=== PATIENT | male | born 1940 | race Caucasian/White ===

== ENCOUNTER 2016-03-27 16:20 | Emergency (ER) | payer MEDICARE ==
[2016-03-27 18:11] LABS: Basophils % (Auto) 0.5 % (0.0-1.8); Eosinophils % (Auto) 1.8 % (0.0-4.3); Hematocrit 39.1 % (35.5-45.6); Hemoglobin 13.1 gm/dl (11.8-15.2); Mean Corpuscular HGB Conc 34 % (32-34); Mean Corpuscular Hemoglobin 33 pg (28-32); Mean Corpuscular Volume 100 fl (84-94); Platelet Count 265 K/mm3 (140-440); Red Blood Count 3.93 M/mm3 (3.65-5.03); Red Cell Distribution Width 13.9 % (13.2-15.2); White Blood Count 11.3 K/mm3 (4.5-11.0)
--- NOTE | 2016-03-27 18:16 | Cat Scan Report ---
FINAL REPORT PROCEDURE: CT HEAD/BRAIN WO CON TECHNIQUE: Computerized tomography of the head was performed without contrast material. HISTORY: r parietal trauma fall COMPARISON: Head CT dated June 15, 2014 FINDINGS: Minimal mucosal thickening is seen in the paranasal sinuses. Mastoid air cells are clear. No calvarial fracture is seen. 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 Prominent chronic small vessel ischemic changes are suspect in the periventricular white matter, increased from prior study. No acute intracranial hemorrhage or mass effect is seen. An acute CVA is not seen. IMPRESSION: Old ischemic changes are seen without evidence of acute abnormality.
[2016-03-27 18:30] LABS: Calcium 9.3 mg/dL (8.4-10.2)
[2016-03-27 18:31] LABS: Potassium 4.4 mmol/L (3.6-5.0)
--- NOTE | 2016-03-27 19:09 | Emergency Department Report ---
ED General Adult HPI - General Chief complaint: Fall Stated complaint: FALL Time Seen by Provider: 03/27/16 17:29 Source: patient, family, EMS Mode of arrival: Stretcher Limitations: Physical Limitation - History of Present Illness Initial comments: Patient fell out of his wheelchair upon attempted transfer. He has a left hemiparesis and this does happen not infrequently. He's been seen here for a laceration related to a similar mechanism. He was sent from the long-term for evaluation after fall. He states that he feels fine. There was no reported loss of consciousness. He denies neck pain. He is able to respond to questions despite his previous stroke. He denies any other injury. He states he feels fine now. He is up-to-date on his tetanus vaccine according to his . -: Gradual Location: head Radiation: non-radiation Severity scale (0 -10): 0 Consistency: now resolved Improves with: none Worsens with: none Associated Symptoms: denies other symptoms Treatments Prior to Arrival: none - Related Data Home Medications Medication Instructions Recorded Confirmed Last Taken Simvastatin 20 mg PO DAILY 06/15/14 06/15/14 Unknown Previous Rx's Medication Instructions Recorded Last Taken Type Insulin Glargine [Lantus VIAL] 20 units SUB-Q QHS 30 Days 06/27/14 Unknown Rx amLODIPine [Norvasc] 2.5 mg PO QDAY #30 tablet 06/27/14 Unknown Rx Allergies Allergy/AdvReac Type Severity Reaction Status Date / Time No Known Allergies Allergy Unverified 06/15/14 11:17 ED Review of Systems ROS: Stated complaint: FALL Other details as noted in HPI Comment: All other systems reviewed and negative ED Past Medical Hx - Past Medical History Hx Hypertension: Yes Hx Diabetes: Yes Additional medical history: Hyperlipidemia. Hemiplegia. Insomnia. Osteoarthritis. Dysarthria and anarthria following unspecified CVA - Social History Smoking Status: Never Smoker Other Social History: [facility] resident - Medications Home Medications: Home Medications Medication Instructions Recorded Confirmed Last Taken Type Simvastatin 20 mg PO DAILY 06/15/14 06/15/14 Unknown History Insulin Glargine [Lantus VIAL] 20 units SUB-Q QHS 30 Days 06/27/14 Unknown Rx amLODIPine [Norvasc] 2.5 mg PO QDAY #30 tablet 06/27/14 Unknown Rx ED Physical Exam - General Limitations: Physical Limitation General appearance: alert, in no apparent distress - Head Head exam: Present: normocephalic, other (scalp abrasion soft tissue swelling no significant hematoma.) - Eye Eye exam: Present: normal appearance - ENT ENT exam: Present: mucous membranes moist - Neck Neck exam: Present: normal inspection. Absent: tenderness, meningismus - Respiratory Respiratory exam: Present: normal lung sounds bilaterally. Absent: respiratory distress - Cardiovascular Cardiovascular Exam: Present: regular rate, normal rhythm. Absent: systolic murmur, diastolic murmur, rubs, gallop - GI/Abdominal GI/Abdominal exam: Present: soft, normal bowel sounds. Absent: distended, tenderness, guarding, rebound - Rectal Rectal exam: Present: deferred - Extremities Exam Extremities exam: Present: normal inspection - Back Exam Back exam: Present: normal inspection. Absent: CVA tenderness (R), CVA tenderness (L), muscle spasm, paraspinal tenderness, vertebral tenderness - Neurological Exam Neurological exam: Present: alert, oriented X3, motor sensory deficit (old hemiparesis) - Psychiatric Psychiatric exam: Present: normal affect, normal mood - Skin Skin exam: Present: warm, dry, normal color, other (scalp abrasion). Absent: rash ED Course Vital Signs 03/27/16 03/27/16 03/27/16 17:10 17:18 17:19 Temperature 98.9 F 98.9 F Pulse Rate 80 70 Respiratory 18 18 16 Rate Blood Pressure 160/90 Blood Pressure 160/90 141/74 [Right] O2 Sat by Pulse 97 97 99 Oximetry - Reevaluation(s) Reevaluation #1: She remained neurologically intact. CT of his head showed nothing acute. He was appropriate for discharge back to the long-term. 03/27/16 19:08 ED Medical Decision Making - Lab Data Result diagrams: 03/27/16 18:00 03/27/16 18:00 Laboratory Results - last 24 hr 03/27/16 03/27/16 18:00 18:00 WBC 11.3 H RBC 3.93 Hgb 13.1 Hct 39.1 MCV 100 H MCH 33 H MCHC 34 RDW 13.9 Plt Count 265 Lymph % (Auto) 14.7 Worth % (Auto) 6.3 Eos % (Auto) 1.8 Baso % (Auto) 0.5 Lymph # 1.7 Worth # 0.7 Eos # 0.2 Baso # 0.1 Seg Neutrophils % 76.7 H Seg Neutrophils # 8.7 H Sodium 140 Potassium 4.4 Chloride 99.0 Carbon Dioxide 28 Anion Gap 17 BUN 21 H Creatinine 1.5 Estimated GFR 45 BUN/Creatinine Ratio 14.00 Glucose 156 H Calcium 9.3 Critical care attestation.: If time is entered above; I have spent that time in minutes in the direct care of this critically ill patient, excluding procedure time. ED Disposition Clinical Impression: Closed head injury Qualifiers: Encounter type: initial encounter Qualified Code(s): S09.90XA - Unspecified injury of head, initial encounter Abrasion of scalp Qualifiers: Encounter type: initial encounter Qualified Code(s): S00.01XA - Abrasion of scalp, initial encounter Disposition: DISCHARGED TO HOME OR SELFCARE Is pt being admited?: No Does the pt Need Aspirin: No Condition: Stable Instructions: Minor Head Injury (ED), Abrasion (ED) Referrals: PRIMARY CARE, [Primary Care Provider] - 3-5 Days Time of Disposition: 19:12
[2016-03-27 19:36] VITALS: BP 142/56
== END 2016-03-27 22:20 | disposition home or self-care (01) ==
LOC: ED 16:20
DX: S09.90XA Unspecified injury of head, initial encounter (principal); S00.01XA Abrasion of scalp, initial encounter; I10 Essential (primary) hypertension; E11.9 Type 2 diabetes mellitus without complications; E78.5 Hyperlipidemia, unspecified
CPT/HCPCS: 36415; 70450; 80048; 85025